=== PATIENT | male | born 1960 | race Caucasian/White ===

== ENCOUNTER 2016-11-10 11:15 | Day surgery (SDC) | payer MEDICARE, MEDICAID ==
[~2016-11-10] VITALS: Ht 193 cm; Wt 86.2 kg
[~2016-11-10 11:15] MED LIST: ALL DAY10 MG PO; ASPIRIN 81 LOW81 MG PO; CENTRU3 PO; GABAPENTIN300 M2 PO; [UNRECOGNIZED DRUG - OTHER]; [UNRECOGNIZED DRUG - OTHER] PO
[2016-11-10 14:50] VITALS: BP 126/81
== END 2016-11-10 14:50 | disposition home or self-care (01) ==
LOC: ENDO 11:15 → ORM 15:00 → ENDO 15:00
PROVIDERS: ATTEND Internal Medicine Gastroenterology
PROC: 0DBK8ZX Excision of Ascending Colon, Via Natural or Artificial Opening Endoscopic, Diagnostic (ICD-10-PCS; principal; 2016-11-10)
PROC: 0DBL8ZX Excision of Transverse Colon, Via Natural or Artificial Opening Endoscopic, Diagnostic (ICD-10-PCS; 2016-11-10)
PROC: 0DBN8ZX Excision of Sigmoid Colon, Via Natural or Artificial Opening Endoscopic, Diagnostic (ICD-10-PCS; 2016-11-10)
DX: R63.4 Abnormal weight loss (principal); K64.4 Residual hemorrhoidal skin tags; K64.8 Other hemorrhoids; D12.2 Benign neoplasm of ascending colon; D12.3 Benign neoplasm of transverse colon; D12.5 Benign neoplasm of sigmoid colon; G62.9 Polyneuropathy, unspecified; Z86.010 Personal history of colon polyps